=== PATIENT | male | born 1965 | race Caucasian/White ===

== ENCOUNTER → 2020-03-27 | Outpatient (CLI) | payer BC | LOC: RAD 10:23 | DX: U07.1 COVID-19 (principal); J12.89 Other viral pneumonia; R59.0 Localized enlarged lymph nodes; K86.9 Disease of pancreas, unspecified; D68.61 Antiphospholipid syndrome; Z79.899 Other long term (current) drug therapy | CPT/HCPCS: Q9967 ==

== ENCOUNTER → 2020-08-12 | Outpatient (CLI) | payer BC | LOC: RAD 15:00 | DX: H35.82 Retinal ischemia (principal); I35.1 Nonrheumatic aortic (valve) insufficiency ==